=== PATIENT | female | born 1970 | race Two or more races ===

== ENCOUNTER 2020-02-26 09:53 | Outpatient (CLI) | payer OTHER ==
[2020-02-26] MEDS ORDERED: COZAAR100 MG PO (15:29)
[2020-02-26] MEDS ORDERED: TRETAL PO (15:30)
[2020-02-26] MEDS ORDERED: ASPIR 8181 MG PO (15:31)
[2020-02-26] MEDS ORDERED: TOPROL XL50 M1 PO (16:11)
== END 2020-02-26 10:44 | disposition home or self-care (01) ==
LOC: LAB 09:53
PROVIDERS: ATTEND Orthopaedic Surgery
DX: I10 Essential (primary) hypertension (principal)

== ENCOUNTER 2020-03-03 11:11 | Outpatient (CLI) | payer OTHER ==
[~2020-03-03 11:11] MED LIST: ASPIR 8181 MG PO; COZAAR100 MG PO; TOPROL XL50 M1 PO; TRETAL PO
== END 2020-03-03 13:41 | disposition home or self-care (01) ==
LOC: LAB 11:11
PROVIDERS: ATTEND Internal Medicine
DX: Z01.818 Encounter for other preprocedural examination (principal); E87.6 Hypokalemia

== ENCOUNTER 2020-03-04 06:52 | Day surgery (SDC) | payer OTHER | END 2020-03-04 15:39 | disposition home or self-care (01) | LOC: CIR.AMB 06:52 → ADM 08:45 → CIR.AMB 08:45 | PROVIDERS: ATTEND Orthopaedic Surgery | DX: M75.42 Impingement syndrome of left shoulder (principal); M75.02 Adhesive capsulitis of left shoulder; Z20.828 Contact with and (suspected) exposure to other viral communicable diseases ==